=== PATIENT | female | born 1940 | race Caucasian/White ===

== ENCOUNTER 2016-04-01 10:00 | Outpatient (RCR) | payer MEDICARE, BC ==
[~2016-04-01 10:00] MED LIST: ALBUTEROL0.09 MG/A1 IH; EVISTA 60MG60 MG/TAB PO; GLUCOSAMINE; MIACALCIN NASA3.7 ML NS; PHENERGAN W/CO120 ML PO; RISPERDAL; SARAFEM10 MG PO; ZITHROMAX 250M250 MG PO; ZYPREXA7.5 MG PO; [UNRECOGNIZED DRUG - OTHER] NS
== END 2016-04-16 12:35 | disposition still patient (30) ==
LOC: WSST 10:00
DX: G31.84 Mild cognitive impairment of uncertain or unknown etiology (principal)
CPT/HCPCS: G9166-GN; G9167-GN

== ENCOUNTER → 2016-05-14 | Outpatient (CLI) | payer MEDICARE, BC ==
[~2016-05-14] MED LIST changes: +ALPHA LIPOIC A200 M2 PO; +ATIVAN 0.50.5 MG/TAB PO; +CO Q-1010 M1 PO; +DEPAKOTE 125MG125 M1 PO; +DEPAKOTE 125MG125 MG PO; +DEPAKOTE 250MG250 MG PO; +FLONASEALLERGY NS; +MUCINEX 60600 MG/TA1 PO; +OMNICEF 300MG300 MG PO; +PREDNISONE20 MG PO; +PROAIR HFA0.09 MG/AC IH; +PROZAC 20MG20 MG PO; +ROBITUSSIN A-C S1 M1 PO; +THE MEDICINE S200 M2; +ZYPREXA 5MG5 MG PO; +ZYPREXA2.5 MG PO
== END ==
LOC: BHSO 15:01
DX: F31.81 Bipolar II disorder (principal)

== ENCOUNTER → 2016-06-30 | Outpatient (CLI) | payer MEDICARE, BC | LOC: BHSO 13:02 | DX: F31.12 Bipolar disorder, current episode manic without psychotic features, moderate (principal) ==

== ENCOUNTER 2016-07-02 16:46 | Inpatient (IN) | payer MEDICARE, BC ==
[~2016-07-02] VITALS: Ht 167.6 cm; Wt 84.5 kg
[2016-07-02] VITALS (200 sets, daily range): BP systolic 118; BP diastolic 68; PULSE 100; TEMP 98.5; O2SAT 86–95
[~2016-07-02 16:46] MED LIST changes: -ALPHA LIPOIC A200 M2 PO; -ATIVAN 0.50.5 MG/TAB PO; -CO Q-1010 M1 PO; -DEPAKOTE 125MG125 M1 PO; -DEPAKOTE 125MG125 MG PO; -DEPAKOTE 250MG250 MG PO; -FLONASEALLERGY NS; -MUCINEX 60600 MG/TA1 PO; -OMNICEF 300MG300 MG PO; -PREDNISONE20 MG PO; -PROAIR HFA0.09 MG/AC IH; -PROZAC 20MG20 MG PO; -ROBITUSSIN A-C S1 M1 PO; -THE MEDICINE S200 M2; -ZYPREXA 5MG5 MG PO; -ZYPREXA2.5 MG PO
[2016-07-02 17:33] LABS: VENOUS BLOOD GAS BE -0.4 (-4-4); VENOUS BLOOD GAS SAO2 88.6 % (60-80)
[2016-07-02 17:34] LABS: VENOUS BLOOD GAS SITE VENIPUNCTURE
[2016-07-02] MEDS ORDERED: ZYPREXA2.5 MG PO (17:41)
[2016-07-02] MEDS ORDERED: DEPAKOTE 125MG125 M1 PO (17:42)
[2016-07-02 17:43] LABS: ANION GAP 12 mmol/L (7-16); BLOOD UREA NITROGEN 15 mg/dL (7-17); CALCIUM 9.5 mg/dL (8.4-10.2); CARBON DIOXIDE 23 mmol/L (22-30); CHLORIDE 102 mmol/L (98-107); CREATININE, serum 0.76 mg/dL (0.52-1.25); GLUCOSE 122 mg/dL (74-106); POTASSIUM 3.9 mmol/L (3.4-5.0); SODIUM 136 mmol/L (137-145)
[2016-07-02 17:49] LABS: INFLUENZA B NEGATIVE
[2016-07-02 17:52] LABS: B-TYPE NATRIURETIC PEPTIDE 487 pg/mL (0-450)
[2016-07-02 17:54] LABS: HEMATOCRIT 38.1 % (37.0-47.0); MEAN CELL VOLUME 93 fl (80.0-100.0); MEAN CORPUSCULAR HEMOGLOBIN 32 pg (27.0-31.0); MEAN CORPUSCULAR HGB CONC 34 g/dl (33.0-37.0); MEAN PLATELET VOLUME 10.2 fl (7.4-10.4); PLATELET COUNT 213 K/mm3 (130-400); RED BLOOD COUNT 4.08 M/mm3 (4.10-5.30); REDCELL DISTRIBUTION WIDTH-CV 12.5 % (11.5-14.5); WHITE BLOOD COUNT 14.8 K/mm3 (4.8-10.8)
[2016-07-02 17:56] LABS: TROPONIN-I < 0.012 ng/mL (0.000-0.034)
[2016-07-02 17:58] LABS: ADD PATHOLOGY DIFF REVIEW NO
[2016-07-02 18:05] LABS: BAND 7 % (0-10); NEUTROPHILS 83 % (42.0-75.2); TOTAL CELLS COUNTED 100
[2016-07-02 18:07] LABS: HYPOCHROMIA 1+; STOMATOCYTE 1+
[2016-07-02] MEDS ORDERED: ALPHA LIPOIC A200 M2 PO (22:28)
[2016-07-02] MEDS ORDERED: CO Q-1010 M1 PO (22:29)
[2016-07-02] MEDS ORDERED: DEPAKOTE 125MG125 MG PO (22:32)
[2016-07-02] MEDS ORDERED: THE MEDICINE S200 M2 (22:38)
[2016-07-02 23:00] LABS: VENOUS BLOOD GAS BE -4.8 (-4-4); VENOUS BLOOD GAS SAO2 64.3 % (60-80)
[2016-07-02 23:02] LABS: VENOUS BLOOD GAS SITE CENTRAL LINE
[2016-07-03] VITALS (632 sets, daily range): BP systolic 88–143; BP diastolic 48–68; PULSE 60–77; TEMP 97.4–98.1; O2SAT 82–100
[2016-07-03 00:36] LABS: PH 5 (5-8); URINE APPEARANCE Clear; URINE BACTERIA None Seen /hpf; URINE BILIRUBIN Negative (NEGATIVE); URINE BLOOD 1+ (NEGATIVE); URINE COLOR Yellow; URINE GLUCOSE 1+ (NEGATIVE); URINE KETONE Trace (NEGATIVE); URINE RBC 0-2 /hpf; URINE UROBILINOGEN Negative (NEGATIVE)
[2016-07-03 00:52] LABS: MAGNESIUM 1.8 mg/dL (1.6-2.3); PHOSPHOROUS 3.4 mg/dL (2.5-4.5)
[2016-07-03 03:25] LABS: VENOUS BLOOD GAS SITE CENTRAL LINE
[2016-07-03 04:36] LABS: INR 1.2 (0.8-3.0); PROTHROMBIN TIME 13.4 SECONDS (9.7-12.8)
[2016-07-03 04:42] LABS: ADJUSTED CALCIUM 8.8 mg/dL (8.4-10.2); ALBUMIN 3.1 gm/dL (3.5-5.0); BILIRUBIN,TOTAL 0.6 mg/dL (0.0-1.0); CALCIUM 8.1 mg/dL (8.4-10.2); CREATININE, serum 0.69 mg/dL (0.52-1.25); POTASSIUM 3.4 mmol/L (3.4-5.0); TOTAL PROTEIN 5.9 gm/dL (6.4-8.2)
[2016-07-03 05:28] LABS: ARTERIAL BLD GAS O2 SATURATION 93.7 % (92-100); ARTERIAL BLD GAS TCO2 CT 20.8; ARTERIAL BLOOD GAS BASE EXCESS -4.4 (-2-2); ARTERIAL BLOOD GAS HCO3 19.7 meq/L (22-26); ARTERIAL BLOOD GAS PO2 71.3 mmHg (80-100); ARTERIAL BLOOD GAS pH 7.39 (7.35-7.45)
[2016-07-03 05:29] LABS: ALLEN TEST YES; ALLENS TEST RESULT PASS; ATS? YES
[2016-07-03 07:37] LABS: PHOSPHOROUS 2.4 mg/dL (2.5-4.5)
[2016-07-03 07:38] LABS: VENOUS BLOOD GAS BE -5.9 (-4-4); VENOUS BLOOD GAS SAO2 73.5 % (60-80)
[2016-07-03 07:41] LABS: VENOUS BLOOD GAS SITE CENTRAL LINE
[2016-07-04 00:04] VITALS: BP 115/69; PULSE 77; TEMP 97.4
[2016-07-04 05:44] VITALS: BP 125/63; PULSE 69; TEMP 97.8
[2016-07-04 07:43] LABS: ADD PATHOLOGY DIFF REVIEW NO
[2016-07-04 07:49] LABS: MEAN CELL VOLUME 97 fl (80.0-100.0); MEAN CORPUSCULAR HGB CONC 33 g/dl (33.0-37.0); MEAN PLATELET VOLUME 10.6 fl (7.4-10.4); PLATELET COUNT 195 K/mm3 (130-400); RED BLOOD COUNT 3.46 M/mm3 (4.10-5.30); REDCELL DISTRIBUTION WIDTH-CV 13.5 % (11.5-14.5); WHITE BLOOD COUNT 18.9 K/mm3 (4.8-10.8)
[2016-07-04 08:03] LABS: HEMATOCRIT 33.4 % (37.0-47.0); MEAN CORPUSCULAR HEMOGLOBIN 32 pg (27.0-31.0)
[2016-07-04 08:25] LABS: BAND 6 % (0-10); METAMYELOCYTE 1 % (0-0); NEUTROPHILS 82 % (42.0-75.2); TOTAL CELLS COUNTED 100
[2016-07-04 08:26] LABS: ADJUSTED CALCIUM 9.2 mg/dL (8.4-10.2); ALBUMIN 3.1 gm/dL (3.5-5.0); ANISOCYTOSIS 1+; BILIRUBIN,TOTAL 0.5 mg/dL (0.0-1.0); CALCIUM 8.5 mg/dL (8.4-10.2); CREATININE, serum 0.82 mg/dL (0.52-1.25); HYPOCHROMIA 1+; MAGNESIUM 2.1 mg/dL (1.6-2.3); PHOSPHOROUS 2.4 mg/dL (2.5-4.5); POLYCHROMASIA 1+; POTASSIUM 3.8 mmol/L (3.4-5.0); TOTAL PROTEIN 5.8 gm/dL (6.4-8.2)
[2016-07-04 08:28] VITALS: BP 140/65; PULSE 80; TEMP 98
[2016-07-04 12:12] VITALS: BP 132/68; PULSE 66; TEMP 98
[2016-07-04 16:38] VITALS: BP 125/55; PULSE 88; TEMP 97.8
[2016-07-04 20:55] VITALS: BP 144/64; PULSE 88; TEMP 98.3
[2016-07-05] VITALS (7 sets, daily range): BP systolic 121–146; BP diastolic 59–97; PULSE 79–125; TEMP 97.2–98.4
[2016-07-05 07:48] LABS: ADJUSTED CALCIUM 9.5 mg/dL (8.4-10.2); ALBUMIN 3.3 gm/dL (3.5-5.0); BILIRUBIN,TOTAL 0.6 mg/dL (0.0-1.0); CALCIUM 8.9 mg/dL (8.4-10.2); CREATININE, serum 0.8 mg/dL (0.52-1.25); POTASSIUM 3.8 mmol/L (3.4-5.0); TOTAL PROTEIN 6.1 gm/dL (6.4-8.2)
[2016-07-06 05:00] VITALS: BP 172/90; PULSE 72; TEMP 97.8
[2016-07-06 06:57] LABS: ADD PATHOLOGY DIFF REVIEW NO
[2016-07-06 07:02] LABS: MEAN CELL VOLUME 97 fl (80.0-100.0); MEAN CORPUSCULAR HGB CONC 33 g/dl (33.0-37.0); MEAN PLATELET VOLUME 10.4 fl (7.4-10.4); PLATELET COUNT 198 K/mm3 (130-400); RED BLOOD COUNT 3.46 M/mm3 (4.10-5.30); WHITE BLOOD COUNT 14.1 K/mm3 (4.8-10.8)
[2016-07-06 07:06] LABS: HEMATOCRIT 33.5 % (37.0-47.0); HEMOGLOBIN 10.9 g/dl (12.5-16.0); MEAN CORPUSCULAR HEMOGLOBIN 32 pg (27.0-31.0)
[2016-07-06 07:28] VITALS: BP 144/68; PULSE 62; TEMP 97.6
[2016-07-06 08:05] LABS: BAND 22 % (0-10); METAMYELOCYTE 1 % (0-0); NEUTROPHILS 50 % (42.0-75.2); TOTAL CELLS COUNTED 100
[2016-07-06] MEDS ORDERED: FLONASEALLERGY NS (10:31)
[2016-07-06] MEDS ORDERED: ZYPREXA 5MG5 MG PO (10:31)
[2016-07-06] MEDS ORDERED: ROBITUSSIN A-C S1 M1 PO (10:31)
[2016-07-06] MEDS ORDERED: DEPAKOTE 125MG125 MG PO (10:31)
[2016-07-06] MEDS ORDERED: PREDNISONE20 MG PO (10:31)
[2016-07-06] MEDS ORDERED: MUCINEX 60600 MG/TA1 PO (10:31)
[2016-07-06] MEDS ORDERED: PROAIR HFA0.09 MG/AC IH (10:31)
[2016-07-06 12:14] VITALS: BP 156/76; PULSE 69; TEMP 98
[2016-07-06] MEDS ORDERED: OMNICEF 300MG300 MG PO (15:45)
[2016-07-06] MEDS ORDERED: ATIVAN 0.50.5 MG/TAB PO (15:53)
[2016-07-06 17:03] VITALS: BP 147/72; PULSE 59; TEMP 98.1
[2016-07-07 15:01] LABS: VENOUS BLOOD GAS SITE CENTRAL LINE
== END 2016-07-06 20:44 | disposition home or self-care (01) | DRG 871 ==
LOC: COL.ER 16:46 → MEDICAL 18:12 → ICU 18:12 → MEDICAL 07-03 12:07
PROVIDERS: Emergency Medicine; Internal Medicine
PROC: 02HV33Z Insertion of Infusion Device into Superior Vena Cava, Percutaneous Approach (ICD-10-PCS; principal; 2016-07-02)
DX: A41.9 Sepsis, unspecified organism (principal); J96.01 Acute respiratory failure with hypoxia; J18.9 Pneumonia, unspecified organism; J44.0 Chronic obstructive pulmonary disease with (acute) lower respiratory infection; J44.1 Chronic obstructive pulmonary disease with (acute) exacerbation; F31.0 Bipolar disorder, current episode hypomanic; R65.20 Severe sepsis without septic shock; E86.1 Hypovolemia; F41.1 Generalized anxiety disorder; R73.9 Hyperglycemia, unspecified; T38.0X5A Adverse effect of glucocorticoids and synthetic analogues, initial encounter
CPT/HCPCS: 90791-AI; 99223-AI; 99232-AI; 99233-AI; 99239; J0456; J0696; J1644; J1650; J1815; J1940; J2060; J2543; J2920; J2930; J7030; J7040; J7050; J7512

== ENCOUNTER → 2016-07-20 | Outpatient (CLI) | payer MEDICARE, BC ==
[~2016-07-20] MED LIST changes: +ALPHA LIPOIC A200 M2 PO; +ATIVAN 0.50.5 MG/TAB PO; +CO Q-1010 M1 PO; +DEPAKOTE 125MG125 M1 PO; +DEPAKOTE 125MG125 MG PO; +DEPAKOTE 250MG250 MG PO; +FLONASEALLERGY NS; +MUCINEX 60600 MG/TA1 PO; +OMNICEF 300MG300 MG PO; +PREDNISONE20 MG PO; +PROAIR HFA0.09 MG/AC IH; +PROZAC 20MG20 MG PO; +ROBITUSSIN A-C S1 M1 PO; +THE MEDICINE S200 M2; +ZYPREXA 5MG5 MG PO; +ZYPREXA2.5 MG PO
== END ==
LOC: BHSO 14:11
DX: F31.73 Bipolar disorder, in partial remission, most recent episode manic (principal)

== ENCOUNTER → 2016-08-11 | Outpatient (CLI) | payer MEDICARE, BC | LOC: BHSO 14:40 | DX: F31.73 Bipolar disorder, in partial remission, most recent episode manic (principal) ==

== ENCOUNTER → 2016-09-17 | Outpatient (CLI) | payer MEDICARE, BC | LOC: BHSO 15:19 | DX: F31.12 Bipolar disorder, current episode manic without psychotic features, moderate (principal) ==

== ENCOUNTER → 2016-10-23 | Outpatient (CLI) | payer MEDICARE, BC | LOC: BHSO 10:19 | DX: F31.32 Bipolar disorder, current episode depressed, moderate (principal) ==

== ENCOUNTER 2016-12-07 16:57 | Observation (INO) | payer OTHER, MEDICARE, BC ==
[~2016-12-07] VITALS: Ht 167.6 cm; Wt 63.6 kg
[~2016-12-07 16:57] MED LIST changes: -DEPAKOTE 250MG250 MG PO; -PROZAC 20MG20 MG PO
[2016-12-07 17:24] LABS: HEMATOCRIT 40.7 % (37.0-47.0); HEMOGLOBIN 13.9 g/dl (12.5-16.0); MEAN CELL VOLUME 95 fl (80.0-100.0); MEAN CORPUSCULAR HEMOGLOBIN 33 pg (27.0-31.0); MEAN CORPUSCULAR HGB CONC 34 g/dl (33.0-37.0); MEAN PLATELET VOLUME 10.6 fl (7.4-10.4); PLATELET COUNT 189 K/mm3 (130-400); RED BLOOD COUNT 4.27 M/mm3 (4.10-5.30); REDCELL DISTRIBUTION WIDTH-CV 13.3 % (11.5-14.5)
[2016-12-07 17:25] LABS: ADD PATHOLOGY DIFF REVIEW NO
[2016-12-07 17:30] LABS: PROTHROMBIN TIME 11.1 SECONDS (9.7-12.8)
[2016-12-07 17:33] LABS: PARTIAL THROMBOPLASTIN TIME 26.5 SECONDS (26.0-37.0)
[2016-12-07 17:52] LABS: BAND 2 % (0-10); HYPOCHROMIA 1+; NEUTROPHILS 50 % (42.0-75.2); PLATELET ESTIMATE NORMAL (NORMAL); TOTAL CELLS COUNTED 100
[2016-12-07 18:24] LABS: ADJUSTED CALCIUM 9.5 mg/dL (8.4-10.2); ALANINE AMINOTRANSFERASE 69 U/L (9-52); ALBUMIN 3.8 gm/dL (3.5-5.0); ALKALINE PHOSPHATASE 54 U/L (50-136); ANION GAP 8 mmol/L (7-16); BILIRUBIN,TOTAL 0.7 mg/dL (0.0-1.0); BLOOD UREA NITROGEN 23 mg/dL (7-17); CALCIUM 9.3 mg/dL (8.4-10.2); CARBON DIOXIDE 27 mmol/L (22-30); CHLORIDE 106 mmol/L (98-107); CREATININE, serum 0.94 mg/dL (0.52-1.25); GLUCOSE 105 mg/dL (74-106); POTASSIUM 3.9 mmol/L (3.4-5.0); SODIUM 141 mmol/L (137-145); TOTAL PROTEIN 6.2 gm/dL (6.4-8.2)
[2016-12-07 18:38] LABS: TROPONIN-I < 0.012 ng/mL (0.000-0.034)
[2016-12-07] MEDS ORDERED: DEPAKOTE 250MG250 MG PO (19:45)
[2016-12-07] MEDS ORDERED: PROZAC 20MG20 MG PO (19:55)
[2016-12-07 21:25] VITALS: BP 122/63; PULSE 72; TEMP 98.3
[2016-12-08] VITALS (7 sets, daily range): BP systolic 95–133; BP diastolic 48–66; PULSE 55–78; TEMP 98.3–99.4
[2016-12-09 02:09] VITALS: BP 138/68; PULSE 70; TEMP 98.9
[2016-12-09 05:46] VITALS: BP 135/76; PULSE 75; TEMP 98.5
[2016-12-09 09:49] VITALS: BP 142/62; PULSE 58; TEMP 97.5
== END 2016-12-09 14:00 | disposition home or self-care (01) ==
LOC: COL.ER 16:57 → SURG 19:15
PROVIDERS: Emergency Medicine
DX: S20.212A Contusion of left front wall of thorax, initial encounter (principal); S20.211A Contusion of right front wall of thorax, initial encounter; V43.52XA Car driver injured in collision with other type car in traffic accident, initial encounter; Y92.410 Unspecified street and highway as the place of occurrence of the external cause; I34.1 Nonrheumatic mitral (valve) prolapse; I10 Essential (primary) hypertension; G43.909 Migraine, unspecified, not intractable, without status migrainosus; F31.9 Bipolar disorder, unspecified; F41.9 Anxiety disorder, unspecified; J45.909 Unspecified asthma, uncomplicated; M81.0 Age-related osteoporosis without current pathological fracture; J44.9 Chronic obstructive pulmonary disease, unspecified; R51 Headache; M54.2 Cervicalgia; R10.2 Pelvic and perineal pain
CPT/HCPCS: G0378; J2765; J3010; J7030; J7040

== ENCOUNTER → 2017-02-22 | Outpatient (CLI) | payer OTHER, MEDICARE, BC ==
[~2017-02-22] MED LIST changes: +DEPAKOTE 250MG250 MG PO; +PROZAC 20MG20 MG PO
== END ==
LOC: MC.RAD 14:20
DX: Z12.31 Encounter for screening mammogram for malignant neoplasm of breast (principal)

== ENCOUNTER 2017-09-04 13:36 | Emergency (ER) | payer MEDICARE, BC ==
[~2017-09-04] VITALS: Ht 165.1 cm; Wt 54.5 kg
[~2017-09-04 13:36] MED LIST changes: +BREO IH
[2017-09-04 13:43] VITALS: BP 127/71; PULSE 83; TEMP 97.1
[2017-09-04 15:28] LABS: COLLECTION METHOD CLEAN CATCH
[2017-09-04 15:40] LABS: AMORPHOUS CRYSTAL Present /uL; MUCOUS Present /lpf; PH 7 (5-8); SQUAMOUS EPITHELIAL 0-2 /hpf; URINE APPEARANCE Cloudy; URINE BACTERIA Rare /hpf; URINE BILIRUBIN Negative (NEGATIVE); URINE BLOOD Negative (NEGATIVE); URINE COLOR Yellow; URINE GLUCOSE Negative (NEGATIVE); URINE KETONE 1+ (NEGATIVE); URINE LEUKOCYTE ESTERASE Negative (NEGATIVE); URINE NITRATE Negative (NEGATIVE); URINE PROTEIN(semi-quant) Negative (NEGATIVE); URINE RBC 0-2 /hpf
[2017-09-07] MEDS ORDERED: WELLBUTRIN SR150 M1 PO (08:15)
[2017-09-07] MEDS ORDERED: WELLBUTRIN 75MG75 MG PO (08:22)
[2017-09-07] MEDS ORDERED: ZYPREXA2.5 MG PO (08:29)
[2017-09-07] MEDS ORDERED: VITAMIN E 400 U4001 PO (08:29)
== END 2017-09-04 16:42 | disposition home or self-care (01) ==
LOC: COL.ER 13:36
PROVIDERS: Physician Assistant
DX: S76.012A Strain of muscle, fascia and tendon of left hip, initial encounter (principal); F31.9 Bipolar disorder, unspecified; Z79.51 Long term (current) use of inhaled steroids; W01.198A Fall on same level from slipping, tripping and stumbling with subsequent striking against other object, initial encounter

== ENCOUNTER → 2017-09-07 | Outpatient (CLI) | payer MEDICARE, BC ==
[2017-09-07] VITALS (9 sets, daily range): BP systolic 122–149; BP diastolic 66–85; PULSE 60–71; TEMP 98.2
[~2017-09-07] VITALS: Ht 167.6 cm; Wt 55.0 kg
[~2017-09-07] MED LIST changes: +VITAMIN E 400 U4001 PO; +WELLBUTRIN 75MG75 MG PO; +WELLBUTRIN SR150 M1 PO
== END ==
LOC: COL.RAD 07:59
DX: G20 Parkinson's disease (principal)

== ENCOUNTER 2017-09-17 17:54 | Emergency (ER) | payer MEDICARE, BC ==
[~2017-09-17] VITALS: Ht 165.1 cm; Wt 53.6 kg
[2017-09-17 18:26] LABS: BASO % 0.3 % (0.0-2.0); EOS # 0.1 (0.0-0.7); EOS % 0.4 % (0-4.0); GRAN # 9.3 (1.4-6.5); GRAN % 75.4 % (42.2-75.2); HEMATOCRIT 39.9 % (37.0-47.0); HEMOGLOBIN 13.6 g/dl (12.5-16.0); LYMPH # 1.6 (1.2-3.4); MEAN CELL VOLUME 96 fl (80.0-100.0); MEAN CORPUSCULAR HEMOGLOBIN 33 pg (27.0-31.0); MEAN CORPUSCULAR HGB CONC 34 g/dl (33.0-37.0); MEAN PLATELET VOLUME 9.3 fl (7.4-10.4); MONO # 1.3 (0.1-0.6); MONO % 10.4 % (1.7-9.3); PLATELET COUNT 280 K/mm3 (130-400); RED BLOOD COUNT 4.17 M/mm3 (4.10-5.30); REDCELL DISTRIBUTION WIDTH-CV 12.8 % (11.5-14.5)
[2017-09-17 18:35] LABS: ALBUMIN 3.5 gm/dL (3.5-5.0); CALCIUM 9.4 mg/dL (8.4-10.2); CREATININE, serum 0.69 mg/dL (0.52-1.25); POTASSIUM 3.9 mmol/L (3.4-5.0); TOTAL PROTEIN 6.4 gm/dL (6.4-8.2)
[2017-09-17 18:51] LABS: INR 1.1 (0.8-3.0); PROTHROMBIN TIME 12.5 SECONDS (9.7-12.8)
[2017-09-17 18:53] LABS: PARTIAL THROMBOPLASTIN TIME 23.6 SECONDS (26.0-37.0)
[2017-09-17 19:25] VITALS: TEMP 99.1
[2017-09-17 19:53] VITALS: BP 165/78; PULSE 70
== END 2017-09-17 19:53 | disposition short-term general hospital (02) ==
LOC: COL.ER 17:54
PROVIDERS: Emergency Medicine; Family Medicine
DX: S32.10XA Unspecified fracture of sacrum, initial encounter for closed fracture (principal); S32.502A Unspecified fracture of left pubis, initial encounter for closed fracture; W19.XXXA Unspecified fall, initial encounter
CPT/HCPCS: J7030

== ENCOUNTER → 2017-09-17 | Outpatient (CLI) | payer MEDICARE, BC | LOC: COL.RAD 16:07 | DX: S32.15XA Type 2 fracture of sacrum, initial encounter for closed fracture (principal); S32.592A Other specified fracture of left pubis, initial encounter for closed fracture | CPT/HCPCS: Q9967 ==

== ENCOUNTER → 2017-11-29 | Outpatient (CLI) | payer MEDICARE, BC | LOC: COL.RAD 10:40 | DX: I71.2 Thoracic aortic aneurysm, without rupture (principal); Z01.812 Encounter for preprocedural laboratory examination | CPT/HCPCS: Q9967 ==

== ENCOUNTER → 2018-02-28 | Outpatient (CLI) | payer MEDICARE, BC | LOC: MC.RAD 06:53 | DX: Z12.31 Encounter for screening mammogram for malignant neoplasm of breast (principal); R92.0 Mammographic microcalcification found on diagnostic imaging of breast ==

== ENCOUNTER → 2018-03-08 | Outpatient (CLI) | payer MEDICARE, BC | LOC: MC.RAD 14:29 | DX: R92.0 Mammographic microcalcification found on diagnostic imaging of breast (principal) ==

== ENCOUNTER → 2018-07-01 | Outpatient (CLI) | payer MEDICARE, BC ==
[~2018-07-01] MED LIST changes: +MAG-OX 400400 MG/TAB PO; +MOTRIN 600600 MG/TAB PO; +MYRBETR25MG PO; +NORCO 325 MG-51 TAB PO; +PRILOSEC 20MG20 MG PO; +REQUIP4 MG PO; +VITAMIN D31000 I1 PO; +ZOLOFT 25MG25 MG PO
--- NOTE | 2018-07-01 10:30 | NUR ---
PATIENT TOOK MEDS THIS AM WAS UNABLE TO PERFORM TEST, GAVE PATIENT AND PAMPHLET WITH INTRUCTION PATIENT WILL CALL TO RESCHEDULE.
== END ==
LOC: COL.PUL 10:00
DX: R06.02 Shortness of breath (principal)

== ENCOUNTER → 2018-07-27 | Outpatient (CLI) | payer MEDICARE, BC | LOC: COL.PUL 12:48 | DX: R06.02 Shortness of breath (principal) | CPT/HCPCS: J7674 ==

== ENCOUNTER → 2019-03-27 | Outpatient (CLI) | payer MEDICARE, BC | LOC: COL.PUL 10:00 | DX: R06.02 Shortness of breath (principal) ==

== ENCOUNTER → 2019-04-28 | Outpatient (CLI) | payer MEDICARE, BC | LOC: COL.PUL 12:08 | DX: R06.02 Shortness of breath (principal) | CPT/HCPCS: J7674 ==

== ENCOUNTER 2021-12-16 09:41 | Day surgery (SDC) | payer MEDICARE, BC ==
[~2021-12-16] VITALS: Ht 165.1 cm; Wt 44.3 kg
[2021-12-16] MEDS ORDERED: ATIVAN 0.50.5 MG/TAB PO (10:47)
[2021-12-16] MEDS ORDERED: NAMENDA 10MG TA10 MG PO (10:47)
[2021-12-16] MEDS ORDERED: NATURAL MAGNES200 MG PO (10:47)
[2021-12-16] MEDS ORDERED: MASON NATURAL2000 IU PO (10:48)
[2021-12-16] MEDS ORDERED: REQUIP4 MG PO (10:49)
[2021-12-16] MEDS ORDERED: VITAMIN E 400 U4001 PO (11:13)
[2021-12-16] MEDS ORDERED: EXELON3 MG PO (11:15)
[2021-12-16] MEDS ORDERED: VITAMIN C500 MG PO (11:16)
[2021-12-16] MEDS ORDERED: PHARMASSURE ZIN50 MG PO (11:18)
[2021-12-16 12:00] VITALS: BP 130/70; PULSE 59; TEMP 96.4
[2021-12-16 12:12] VITALS: BP 137/85; PULSE 58; TEMP 97.4
[2021-12-16 12:15] VITALS: BP 151/85; PULSE 67
[2021-12-16 12:30] VITALS: BP 146/77; PULSE 56
== END 2021-12-16 13:20 | disposition home or self-care (01) ==
LOC: SDCO 09:41
DX: K64.0 First degree hemorrhoids (principal)
CPT/HCPCS: J2704; J7120

== ENCOUNTER 2022-06-21 14:14 | Inpatient (IN) | payer MEDICARE, BC ==
[~2022-06-21] VITALS: Ht 167.6 cm; Wt 46.0 kg
[~2022-06-21 14:14] MED LIST changes: +EXELON3 MG PO; +MASON NATURAL2000 IU PO; +NAMENDA 10MG TA10 MG PO; +NATURAL MAGNES200 MG PO; +PHARMASSURE ZIN50 MG PO; +VITAMIN C500 MG PO
[2022-06-21 15:02] LABS: BASO % 0.5 % (0.0-2.0); EOS % 0.3 % (0.0-4.0); GRAN # 2.6 K/mm3 (1.4-6.5); GRAN % 65.4 % (42.2-75.2); HEMATOCRIT 42.3 % (37.0-47.0); HEMOGLOBIN 14.8 g/dl (12.5-16.0); LYMPH % 25.1 % (20.0-51.0); MEAN CELL VOLUME 96 fl (80.0-100.0); MEAN CORPUSCULAR HEMOGLOBIN 34 pg (27-31); MEAN CORPUSCULAR HGB CONC 35 g/dl (33.0-37.0); MEAN PLATELET VOLUME 10.7 fl (7.4-10.4); MONO # 0.3 K/mm3 (0.1-0.6); MONO % 8.4 % (1.7-9.3); PLATELET COUNT 152 K/mm3 (130-400); RED BLOOD COUNT 4.39 M/mm3 (4.10-5.30)
[2022-06-21 15:16] LABS: ALANINE AMINOTRANSFERASE 35 U/L (0-55); ALBUMIN 3.6 gm/dL (3.4-4.8); ALKALINE PHOSPHATASE 88 U/L (40-150); ANION GAP 11 mmol/L (7-16); AST,SGOT 48 U/L (5-34); BILIRUBIN,TOTAL 0.5 mg/dL (0.2-1.2); BLOOD UREA NITROGEN 31 mg/dL (10-20); CALCIUM 9.3 mg/dL (8.4-10.2); CARBON DIOXIDE 22 mmol/L (23-31); CHLORIDE 108 mmol/L (98-107); CREATININE, serum 0.82 mg/dL (0.57-1.11); GLUCOSE 61 mg/dL (70-99); POTASSIUM 4.7 mmol/L (3.5-4.5); SODIUM 141 mmol/L (136-145); TOTAL PROTEIN 6.2 gm/dL (6.2-8.1)
[2022-06-21 15:22] LABS: TROPONIN-I < 0.010 ng/mL (0.00-0.033)
[2022-06-21 16:39] LABS: COLLECTION METHOD CATHETER
[2022-06-21 16:52] LABS: MUCOUS Present (NOT PRESENT); SQUAMOUS EPITHELIAL None Seen /hpf (0-10); URINE APPEARANCE Clear (CLEAR/HAZY); URINE BACTERIA None Seen /hpf (NONE SEEN); URINE COLOR Yellow (YELLOW); URINE RBC 0-2 /hpf (0-2)
[2022-06-21 16:53] LABS: URINE BLOOD TRACE-INTACT (NEGATIVE); URINE KETONE TRACE (NEGATIVE)
[2022-06-21 16:54] LABS: URINE GLUCOSE Negative (NEGATIVE); URINE NITRATE Negative (NEGATIVE); URINE PROTEIN(semi-quant) Negative (NEGATIVE); URINE UROBILINOGEN 0.2 E.U/dL (0.2-1.0)
[2022-06-21] MEDS ORDERED: PROAIR HFA0.09 MG/AC IH (18:54)
[2022-06-21] MEDS ORDERED: ZYRTEC5 MG PO (18:55)
[2022-06-21] MEDS ORDERED: MAG-OX 400400 MG/TAB PO (18:56)
[2022-06-21] MEDS ORDERED: REQUIP XL4 MG PO (18:57)
[2022-06-21 19:11] LABS: MAGNESIUM 2.2 mg/dL (1.6-2.6)
[2022-06-21 19:31] LABS: TSH w REFLEX 3.48 uIU/mL (0.350-4.940)
[2022-06-21 21:48] VITALS: BP 159/83; PULSE 58
[2022-06-22] VITALS (8 sets, daily range): BP systolic 119–153; BP diastolic 62–102; PULSE 46–61; TEMP 96.3–96.8
--- NOTE | 2022-06-22 05:21 | NUR ---
NURSE SAMMY NOTIFIED THIS RN AT 0444 THAT THE PTS BG WAS 48. 12.5 GM OF D50 GIVEN PER PRN ORDER VIA IV SINCE THE PATIENT REFUSES TO EAT OR DRINK. RECHECK BG AT 05:12 BG 44. THE PATIENT HAS POOR CIRCULATION IN FINGERS AND TOES. RECHECK AGAIN AT 05:17 BG 130 USING EAR LOBE. WILL MONITOR AND RECHECK IN 15.
--- NOTE | 2022-06-22 07:43 | NUR ---
0556 DEVON ABRAMS APRN NOTIFIED OF PTS BLOOD GLUCOSE LEVELS. LAST BG AT 0553 WAS 127. NEW ORDERS RECEIVED FROM Jazz ABRAMS APRN. WILL MONITOR.
--- NOTE | 2022-06-22 09:21 | NUR ---
Initial visit; Arlette thanked for looking in on her and offering God's blessings and reassuring Arlette that she is in good hands.
--- NOTE | 2022-06-22 10:18 | NUR ---
FINISHED THE SHIFT ASSESSMENT. PATIENT WAS ON BED AND COMPLAINED ABOUT WETTING THE BED. WE CHANGED HER AND PLACED THE PUREWIC. SHE HAS DRESSING ON HER SACRAL AREA. PATINE REFUSED MEDICATION.
--- NOTE | 2022-06-22 10:45 | NUR ---
Dr Wells consulted stating he was gong to place a pallative care consult and would like to have a family meeting due to pt refusing therapy. reported pt needs hospice referral would like to speak to RACHEL about DNR due to heart rate and current status. CJ called JALEESADerick Barreto ([phone]) at 1045am to complete intake. Fredrick explained he is eating breakfast and will be at the hospital in 1/2 hour after breakfast and requested to complete intake in person. CJ provided him with Tianna's name as attending CJ. CJ explained Dr would like to have a family meeting to discuss plan of care. Fredrick will stop by the nurse station upon arrival. CJ informed Dr. Russell Alcala (spouse) will be arriving in about 30 min. CJ consulted with Afsaneh to inform of pallative care consult and need to initiate family meeting. CJ provided update to attending CJ Wynn.
--- NOTE | 2022-06-22 15:13 | NUR ---
Met with Pt-Arlette, Fredrick, CJ Baxter and myself for Palliative Care consult. When the pt was asked of her understanding of her case she stated, "I have no control. I have so much pain. My bladder just won't work." I asked her Fredrick for his understanding and he asked, "Is there no hope?" We reviewed the case and per Dr. Wells the pt has extremely poor prognosis. Tianna reviewed options for Hospice care. Encouraged /pt to consider hospice care. Fredrick stated that sometimes he is able to coax the to eat or take her pills. I reminded that minimal intake as such can't sustain life. Answered all of 's/pt's questions. voiced understanding and stated he would have Tianna contact Hospice to consider discharge there. Patent Litigation Associate Carol was notified to visit due to Fredrick stating they are [employer]ism and have believed a long time. Lately they have been isolated since Covid and do not have the connections socially. They have no children.
--- NOTE | 2022-06-22 15:14 | NUR ---
The patient's , Fredrick, arrived to the hospital. CJ met with the patient and her to set up a time for the palliative care meeting. The patient was hard to hear, but was constantly repeating, "there is no hope" and "there is nothing you can do for me." CJ and JAMES Ibrahimfashion patternmaker, then met with the patient and her for the palliative care meeting. The patient would repeat the above statements. They are interested in hospice care and the hospice house. The patient's shares that he would like to visit frequently and stay the night. CJ contacted and emailed a referral to Patrice at [facility]. Awaiting screen. The patient's DPOA-HC is in EMR and it designates her .
--- NOTE | 2022-06-22 22:02 | NUR ---
Patient assessed around 1950. Drowsy, but awakens easily. Very soft spoken, hard to understand. Not answering questions appropriately. IV fluids running per orders. Patient cold, hands and feet purple, given warm blanket. No urine output with purewick, bladder scanned with a result of 350. Will recheck later if not urine output. In bed with call light within reach. High fall risk precautions in place. Bed alarm on. Repositioned in bed.
[2022-06-23 03:33] VITALS: BP 145/77; PULSE 52; TEMP 97
--- NOTE | 2022-06-23 05:31 | NUR ---
Patient has had urine output with purewick. Continues on IV fluids per orders. Blood sugars have been done every 2 hours during the night. In bed with call light within reach. Bed alarm on. No outward s/sx of pain or discomfort noted at this time, such as facial grimacing and moaning.
[2022-06-23 07:29] VITALS: BP 95/56; PULSE 52; TEMP 97.1
--- NOTE | 2022-06-23 08:00 | NUR ---
Shift assessment is done this morning. Patient is lying on her bed quietly. She doesn't show any s/s of pain such as grimacing, moaning, or kicking feet. IV fluids is infusing and purewick is in place for urine collection. Took her morning meds crushed and mixed in apple sauce. Will continue to monitor.
[2022-06-23 11:16] VITALS: BP 137/77; BP 77/56; PULSE 67; TEMP 98.3; TEMP 98.5
--- NOTE | 2022-06-23 12:29 | NUR ---
PT PLACED ON COMFORT CARE MEASURES, RESTING IN BED COMFORTABLY AT THIS TIME. CONTIUING TO MONITOR.
--- NOTE | 2022-06-23 22:02 | NUR ---
Patient assessed around 2024. in with patient assisting with feeding. asked about visiting hours, and explained to him that he could stay as long as he wanted and that visiting hours did not apply to him with patient being on comfort cares. Voiced understanding. Patient has moist productive cough, LS coarse crackles throughout. Continues on IV fluids per orders. Purewick in place. Denies having pain and discomfort, and no outward s/sx of pain or discomfort noted, such as facial grimacing and moaning. In bed with call light within reach. High fall risk precautions in place. Bed alarm on.
--- NOTE | 2022-06-24 05:32 | NUR ---
Continues on IV fluids per orders. Has denied pain and discomfort when asked. In bed with call light within reach. High fall risk precautions in place. Bed alarm on.
--- NOTE | 2022-06-24 08:00 | NUR ---
Patient in obvious respiratory distress. Roxanol given per dr order for comfort.
--- NOTE | 2022-06-24 11:20 | NUR ---
1120 Patient continues to decline. Very obvious that patient is uncomfortable and is very wet sounding. Will not take any PO meds and clamps mouth shut stating "Nothing is helping." Spoke with Dr Wells and new orders received for IV morphine. Given at this time. Silverio cath placed by Dave MichelleRefractory Products Supervisor. Spoke with patients states he is waiting on a repair man but should be here within the hour. 1140 Patient continues to be air hungry and anxious. Ativan given per dr tan. Dave MichelleRefractory Products Supervisor at bedside comforting patient. 1215 Patient resting eyes closed and appears much more comfortable at this time.
--- NOTE | 2022-06-24 14:37 | NUR ---
Patrice, at [facility], reports that they are able to accept the patient tomorrow. Arrival time is pending. CJ met with the patient's , Fredrick, to update. Fredrick is in agreement to the plan. *Discharge plan: hospice house*
--- NOTE | 2022-06-24 16:49 | NUR ---
Patient is on comfort care. Sleeping comfortably after given the Morphine 2mg. Patient's is in the room with her.
--- NOTE | 2022-06-24 22:41 | NUR ---
Patient assessed around 1919. Patient with eyes closed. LS coarse crackles. Gurgling heard. Given PRN Roxanol to help with breathing. and friend at bedside. left around 2129, friend remains. Explained she could stay all night if she wanted. Given pillow. Encouraged to call with any questions, needs, or concerns.
--- NOTE | 2022-06-25 05:42 | NUR ---
Patient in bed, eyes closed, HOB elevated for comfort. Continues on comfort care.
--- NOTE | 2022-06-25 07:30 | NUR ---
Patient is resting in bed, not alert, warm. Catheter marinelli in place, clear yellow output. Assessment completed. To be transfered to hospice home.
[2022-06-25] MEDS ORDERED: ROXANOL 20MG20 MG/ML SL (08:45)
[2022-06-25] MEDS ORDERED: ATIVAN 0.50.5 MG/TAB PO (08:45)
--- NOTE | 2022-06-25 09:24 | NUR ---
The patient is to discharge today, 06/25, to the [facility]. Transportation was scheduled at 1030, via [facility]. CJ notified the patient's and RN of the time. SW also read the IM and reviewed the EMS consent form to the patient's , Fredrick, over the phone. Fredrick verbalized understanding and agreement to discharge today. He gave approval to sign the forms on his behalf. No additional needs at this time.
--- NOTE | 2022-06-25 12:04 | NUR ---
Patient was taken by EMS to [facility].
== END 2022-06-25 12:05 | disposition hospice, home (50) | DRG 640 ==
LOC: COL.ER 14:14 → MEDICAL 18:41
PROVIDERS: Nurse Practitioner Family; Physician Assistant; ADMIT Internal Medicine
DX: E16.2 Hypoglycemia, unspecified (principal); E43 Unspecified severe protein-calorie malnutrition; E87.20 Acidosis, unspecified; Z68.1 Body mass index [BMI] 19.9 or less, adult; G20 Parkinson's disease; F02.80 Dementia in other diseases classified elsewhere, unspecified severity, without behavioral disturbance, psychotic disturbance, mood disturbance, and anxiety; Z51.5 Encounter for palliative care; F20.9 Schizophrenia, unspecified; Z66 Do not resuscitate; T68.XXXA Hypothermia, initial encounter; E86.0 Dehydration; R29.6 Repeated falls; M41.9 Scoliosis, unspecified; I10 Essential (primary) hypertension; F31.9 Bipolar disorder, unspecified; M81.0 Age-related osteoporosis without current pathological fracture; J45.909 Unspecified asthma, uncomplicated; G43.909 Migraine, unspecified, not intractable, without status migrainosus; D72.819 Decreased white blood cell count, unspecified; E87.5 Hyperkalemia; E87.8 Other disorders of electrolyte and fluid balance, not elsewhere classified; I44.0 Atrioventricular block, first degree; I71.21 Aneurysm of the ascending aorta, without rupture; Z87.891 Personal history of nicotine dependence; Z98.51 Tubal ligation status; Z88.1 Allergy status to other antibiotic agents; Z88.8 Allergy status to other drugs, medicaments and biological substances; Z90.710 Acquired absence of both cervix and uterus; Z90.89 Acquired absence of other organs; Z87.442 Personal history of urinary calculi; Z23 Encounter for immunization
CPT/HCPCS: J2060; J2270; J7030